=== PATIENT | female | born 1965 | race Caucasian/White ===

== ENCOUNTER 2017-04-02 00:41 | Inpatient (IN) | payer SELFPAY ==
[~2017-04-02] VITALS: Ht 170.2 cm; Wt 94.6 kg
[2017-04-02] VITALS (11 sets, daily range): BP systolic 123–168; BP diastolic 76–97; PULSE 66–80; RESP 12–23; TEMP 96.8–98.6; O2SAT 95–100
[~2017-04-02 00:41] MED LIST: ALPR.5 PO; BENZ1TAB PO; ESCI10TA PO; HYDR50TA94 PO; IBUP800T23 PO; SERO100T PO; TRAZ50TA12 PO
[2017-04-02] MEDS ORDERED: SODIUM CHLOR 0.9% 1000 ML INJ 1,000 ML IV ONE ×2 (00:49→01:30)
--- NOTE | 2017-04-02 00:59 | RADRPT ---
EXAM DATE/TIME: 04/02/2017 00:51 [facility] COMPARISON: No previous studies available for comparison. INDICATIONS : Stroke alert; right weakness and headache. RADIATION DOSE: 49.40 CTDIvol (mGy) This report was called by to Dr. Dick at 12: 58 AM MEDICAL HISTORY : Non-responsive. SURGICAL HISTORY : Non-responsive. ENCOUNTER: Initial ACUITY: 1 day PAIN SCALE: Non-responsive LOCATION: cranial TECHNIQUE: Multiple contiguous axial images were obtained of the head. Using automated exposure control and adj ustment of the mA and/or kV according to patient size, radiation dose was kept as low as reasonably a chievable to obtain optimal diagnostic quality images. DICOM format image data is available electro nically for review and comparison. FINDINGS: CEREBRUM: The ventricles are normal for age. No evidence of midline shift, mass lesion, hemorrhage or acute in farction. No extra-axial fluid collections are seen. POSTERIOR FOSSA: The cerebellum and brainstem are intact. The 4th ventricle is midline. The cerebellopontine angle i s unremarkable. EXTRACRANIAL: The visualized portion of the orbits is intact. SKULL: The calvaria is intact. No evidence of skull fracture. CONCLUSION: Negative exam. No bleed. Aris Lord MD on April 02, 2017 at 0:57 Board Certified Radiologist. This report was verified electronically.
[2017-04-02 01:03] LABS: I-STAT POTASSIUM 3.6 MMOL/L (3.5-4.9); I-STAT SODIUM 143 MMOL/L (138-146)
[2017-04-02 01:06] LABS: AUTOMATED NEUTROPHIL # 3.3 TH/MM3 (1.8-7.7); BASOPHIL % 0.6 % (0.0-2.0); EOSINOPHIL # 0.3 TH/MM3 (0-0.4); EOSINOPHIL % 4.9 % (0.0-4.0); HEMO FLAGS DIFF FINAL; LYMPH % 38.8 % (9.0-44.0); LYMPHOCYTE # 2.7 TH/MM3 (1.0-4.8); MEAN CELL VOLUME 100.6 FL (80.0-100.0); MEAN CORPUSCULAR HEMOGLOBIN 35.8 PG (27.0-34.0); MEAN CORPUSCULAR HGB CONC 35.6 % (32.0-36.0); MONO % 8.3 % (0.0-8.0); NEUT % 47.4 % (16.0-70.0); PLATELET COUNT 200 TH/MM3 (150-450); RED BLOOD COUNT 3.68 MIL/MM3 (4.00-5.30); RED CELL DISTRIBUTION WIDTH 13.6 % (11.6-17.2)
[2017-04-02] MEDS ORDERED: IOHEXOL 350 MG/ML 10 ML VIAL (for RAD DIAG) IV ONE (01:10)
[2017-04-02 01:17] LABS: PROTHROMBIN TIME - PATIENT 11.5 SEC (9.8-11.6)
--- NOTE | 2017-04-02 01:17 | RADRPT ---
EXAM DATE/TIME: 04/02/2017 01:01 [facility] COMPARISON: No previous studies available for comparison. INDICATIONS : Stroke alert; Right sided weakness and headache. IV CONTRAST: 100 cc Omnipaque 350 (iohexol) IV ; Cumulative dose for multiple exams. RADIATION DOSE: 28.26 CTDIvol (mGy) ; Combined studies MEDICAL HISTORY : Non-responsive. SURGICAL HISTORY : Non-responsive. ENCOUNTER: Initial ACUITY: 1 day PAIN SCALE: Non-responsive LOCATION: cranial TECHNIQUE: Volumetric scanning was performed using a multi-row detector CT scanner. The data was post processed with a variety of visualization algorithms including full volume maximum intensity projection, multi -planar sliding thin slab reformation, curved planar reformation, and surface rendering techniques. Using automated exposure control and adjustment of the mA and/or kV according to patient size, radiat ion dose was kept as low as reasonably achievable to obtain optimal diagnostic quality images. DICO M format image data is available electronically for review and comparison. FINDINGS: There is excellent visualization of the major intracranial arteries out to the second-order branch ve ssels. There is no evidence for aneurysm, vessel truncation or stenosis, and no evidence for vascula r malformation. Anatomic variant of the [place]. 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 CONCLUSION: 1. Anatomic variant of the [place] as above. 2. Otherwise, intracranial vessels are all patent without embolus or aneurysmal disease. Aris Lord MD on April 02, 2017 at 1:13 Board Certified Radiologist. This report was verified electronically.
--- NOTE | 2017-04-02 01:20 | RADRPT ---
EXAM DATE/TIME: 04/02/2017 01:01 [facility] COMPARISON: No previous studies available for comparison. INDICATIONS : Stroke alert; Right sided weakness and headache. IV CONTRAST: 100 cc Omnipaque 350 (iohexol) IV ; Cumulative dose for multiple exams. RADIATION DOSE: 28.26 CTDIvol (mGy) ; Combined studies MEDICAL HISTORY : Non-responsive. SURGICAL HISTORY : Non-responsive. ENCOUNTER: Initial ACUITY: 1 day PAIN SCALE: Non-responsive LOCATION: neck Elevated flow velocities and ICA/CCA ratios have been found to correlate with increased degrees of vessel stenosis, calculated as percentage of diameter relative to a normal segment of distal ICA/CCA. TECHNIQUE: Volumetric scanning was performed using a multirow detector CT scanner. The data was post processed with a variety of visualization algorithms including full-volume maximum intensity projection, multip lanar sliding thin-slab reformation, curved-planar reformation, and surface-rendering techniques. Us ing automated exposure control and adjustment of the mA and/or kV according to patient size, radiatio n dose was kept as low as reasonably achievable to obtain optimal diagnostic quality images. DICOM f ormat image data is available electronically for review and comparison. FINDINGS: AORTIC ARCH: There is a three-vessel origin of the great vessels from the aorta. No evidence of ostial narrowing. RIGHT CAROTID: The common carotid artery is intact. The carotid bulb has a normal configuration without ulceration o r narrowing. The internal carotid artery lumen is smooth without stenosis. The external carotid haylee ry is intact. LEFT CAROTID: The common carotid artery is intact. The carotid bulb has a normal configuration without ulceration or narrowing. The internal carotid artery lumen is smooth without stenosis. The external carotid ar jada is intact. VERTEBRALS: The vertebral arteries have a symmetric diameter. No stenotic lesions are seen. MISCELLANEOUS: Bilateral hypodensities in the lobes of the thyroid with the largest on the right measuring 9 mm CONCLUSION: 1. Bilateral thyroid hypodensities are nonspecific but overtly benign. These can be further evaluated on an outpatient basis with ultrasound if clinically warranted. 2. Otherwise, cervical and arch vessels are all patent with no significant atherosclerotic disease. Aris Lord MD on April 02, 2017 at 1:16 Board Certified Radiologist. This report was verified electronically.
--- NOTE | 2017-04-02 01:26 | PD ---
HPI Chief Complaint: Stroke Alert Time Seen by Provider: 00:53 Travel History International Travel<30 days: No Contact w/Intl Traveler<30days: No Traveled to known affect area: No History of Present Illness HPI Patient is a 51-year-old female who presents to emergency room for stroke alert. As per EMS, symptoms began at 12:10 AM, she was riding a car with her friends when she had right-sided paralysis of her right arm and right leg. EMS also reports speech deficits. 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 She reports that she follows with Dr. Hurst and is given Topamax as well as Dilaudid for her hemiplegic migraines. She reports that a few hours prior to these onset of the symptoms, patient did begin to have a migraine, reports that she did not take any of her migraine medications. EMS reported the patient may have had TPA 2 months ago at an outside hospital for similar symptoms. Patient currently is not on anticoagulants. Blood sugar 98. Stroke alert was called overhead, Dr. Mccabe notified. [facility] Past Medical History Arthritis: No Asthma: No Autoimmune Disease: No Blood Disorders: No Anxiety: Yes Depression: Yes Cancer: No Cardiovascular Problems: No Chest Pain: No Congestive Heart Failure: No COPD: No Diabetes: No Diminished Hearing: No Endocrine: No Gastrointestinal Disorders: Yes (GASTROPERESIS) GERD: Yes Genitourinary: No Headaches: Yes (Hx of hemiplegic migraines) Immune Disorder: No Musculoskeletal: Yes Neurologic: Yes Psychiatric: Yes (Hx of treatment for anxiety and depression) Reproductive: No Respiratory: No Migraines: Yes Seizures: No Sickle Cell Disease: No Sleep Apnea: No Thyroid Disease: No Ulcer: No Past Surgical History Abdominal Surgery: Yes (APPENDECTOMY, CHOLESTECTOMY) Appendectomy: Yes Cardiac Surgery: No Section: Yes Cholecystectomy: Yes Endocrine Surgery: No Gynecologic Surgery: Yes () Thoracic Surgery: No Other Surgery: Yes (SINUS SURGERY) Social History Alcohol Use: Yes (RARELY) Tobacco Use: Yes (1/2 PPD) Substance Use: Yes (HYDROMORPHINE) Allergies-Medications (Allergen,Severity, Reaction): Coded Allergies: Sulfa (Sulfonamide Antibiotics) (Unverified Allergy, Severe, LUMPS ON HEAD , 04/02/17) bismuth subsalicylate (Unverified Allergy, Severe, HIVES, 04/02/17) docusate (Unverified Allergy, Severe, HIVES, 04/02/17) Reported Meds & Prescriptions Reported Meds & Active Scripts Active Ibuprofen 800 Mg Tab 800 Mg PO Q8H PRN Escitalopram (Escitalopram Oxalate) 10 Mg Tab 10 Mg PO DAILY Reported Latuda (Lurasidone) 20 Mg Tab 20 Mg PO DAILY Xanax (Alprazolam) 0.5 Mg Tab 0.5 Mg PO BID Trazodone (Trazodone HCl) 50 Mg Tab 50 Mg PO HS Seroquel (Quetiapine Fumarate) 100 Mg Tab 100 Mg PO HS Hydroxyzine HCl 50 Mg Tab 50 Mg PO Q6HR Review of Systems General / Constitutional: No: Fever Eyes: No: Visual changes HENT: No: Headaches Cardiovascular: No: Chest Pain or Discomfort Respiratory: No: Shortness of Breath Gastrointestinal: No: Abdominal Pain Genitourinary: No: Dysuria Musculoskeletal: No: Pain Skin: No Rash Neurologic: Positive: Weakness, Focal Abnormalities, Coordination Problem, Headache, Slurred Speech, Paresthesia Psychiatric: No: Depression Endocrine: No: Polydipsia Hematologic/Lymphatic: No: Easy Bruising Physical Exam Narrative GENERAL: moderate distress SKIN: Focused skin assessment warm/dry. HEAD: Atraumatic. Normocephalic. EYES: Pupils equal and round. No scleral icterus. No injection or drainage. ENT: No nasal bleeding or discharge. Mucous membranes pink and moist. NECK: Trachea midline. No JVD. CARDIOVASCULAR: Regular rate and rhythm. No murmur appreciated. RESPIRATORY: No accessory muscle use. Clear to auscultation. Breath sounds equal bilaterally. GASTROINTESTINAL: Abdomen soft, non-tender, nondistended. Hepatic and splenic margins not palpable. MUSCULOSKELETAL: No obvious deformities. No clubbing. No cyanosis. No edema. NEUROLOGICAL: Awake and alert. Patient with paralysis to right upper and right lower extremity, NIH 15 PSYCHIATRIC:Flat mood and affect Data Data Last Documented VS Vital Signs Date Time Temp Pulse Resp B/P Pulse Ox O2 Delivery O2 Flow Rate FiO2 04/02/17 01:54 76 16 151/76 98 Nasal Cannula 2 04/02/17 00:[address] Brain W/O Iv Contrast(Rout) (04/02/17 00:48) Electrocardiogram (04/02/17 ) I-Stat Creatinine (04/02/17 00:49) I-Stat Profile (04/02/17 00:49) Prothrombin Time / Inr (Pt) (04/02/17 00:49) Act Partial Throm Time (Ptt) (04/02/17 00:49) Complete Blood Count With Diff (04/02/17 00:49) Creatine Kinase (Cpk) (04/02/17 00:49) Troponin I (04/02/17 00:49) Ua Includes Microscopic (04/02/17 00:49) Drug Screen, Random Urine (04/02/17 00:49) Chest, Single Ap (04/02/17 ) Blood Glucose (04/02/17 00:49) Ecg Monitoring (04/02/17 00:49) Iv Access Insert/Monitor (04/02/17 00:49) NPO (04/02/17 00:49) Oximetry (04/02/17 00:49) Sodium Chlor 0.9% 1000 Ml Inj (Ns 1000 M (04/02/17 00:49) Cta Brain W Iv Contrast W 3d (04/02/17 01:02) Cta Neck W Iv Contrast W 3d (04/02/17 01:02) Iohexol 350 Inj (Omnipaque 350 Inj) (04/02/17 01:10) Aspirin Supp (Aspirin Supp) (04/02/17 01:30) Sodium Chlor 0.9% 1000 Ml Inj (Ns 1000 M (04/02/17 01:30) Labs Laboratory Tests Test 04/02/17 00:45 White Blood Count 7.0 TH/MM3 Red Blood Count 3.68 MIL/MM3 Hemoglobin 13.1 GM/DL Bedside Hemoglobin 11.9 G/DL Hematocrit 37.0 % Bedside Hematocrit 35.0 % Mean Corpuscular Volume 100.6 FL Mean Corpuscular Hemoglobin 35.8 PG Mean Corpuscular Hemoglobin 35.6 % Concent Red Cell Distribution Width 13.6 % Platelet Count 200 TH/MM3 Mean Platelet Volume 8.0 FL Neutrophils (%) (Auto) 47.4 % Lymphocytes (%) (Auto) 38.8 % Monocytes (%) (Auto) 8.3 % Eosinophils (%) (Auto) 4.9 % Basophils (%) (Auto) 0.6 % Neutrophils # (Auto) 3.3 TH/MM3 Lymphocytes # (Auto) 2.7 TH/MM3 Monocytes # (Auto) 0.6 TH/MM3 Eosinophils # (Auto) 0.3 TH/MM3 Basophils # (Auto) 0.0 TH/MM3 CBC Comment DIFF FINAL Differential Comment Prothrombin Time 11.5 SEC Prothromb Time International 1.0 RATIO Ratio Activated Partial 27.0 SEC Thromboplast Time Bedside Sodium 143 MMOL/L Bedside Potassium 3.6 MMOL/L Bedside Chloride 105 MMOL/L Bedside Blood Urea Nitrogen 22 MG/DL Bedside Creatinine 0.8 MG/DL Bedside Glucose 104 MG/DL Total Creatine Kinase 95 U/L Troponin I LESS THAN 0.02 NG/ML MDM Medical Screen Exam Complete: Yes Emergency Medical Condition: Yes Differential Diagnosis EKG at 0110: NSR at 71bpm, qt/qtc: 393/416, no acute st or t wave changes Vital Signs Date Time Temp Pulse Resp B/P Pulse Ox O2 Delivery O2 Flow Rate FiO2 04/02/17 01:15 72 13 155/83 98 Nasal Cannula 2 04/02/17 00:41 98.6 69 12 143/97 100 Narrative Course Patient is a 51-year-old female who presents to emergency room for stroke alert. As per EMS, symptoms began at 12:10 AM tonight, she was riding a car with her friends when she had right-sided paralysis of her right arm and right leg. EMS also reports speech deficits. Patient reports that she has had these symptoms in the past, reports that she has hemiplegic migraines which leads to right-sided hemiplegia. She reports that she follows with Dr. Hurst and is given Topamax as well as Dilaudid for her hemiplegic migraines. She reports that a few hours prior to these onset of the symptoms, patient did begin to have a migraine, reports that she did not take any of her migraine medications. EMS reported the patient may have had TPA 2 months ago at an outside hospital for similar symptoms. Patient currently is not on anticoagulants. Blood sugar 98. Stroke alert was called overhead, Dr. Mccabe notified. Case reviewed with Dr. Mccabe, NIH scale 15 Patient is alert and oriented 3, she is capable of making decisions. I did offer patient TPA as there is concerns for CVA as she does have right-sided deficits with a NIH scale of 15. All risks and benefits reviewed with patient in detail. Patient refuses TPA at this time, reports that this is similar to her hemiplegic migraines that she has had in the past. Patient reports that she always has paralysis on her right side whenever this happens and it can take hours or days prior to resolution of symptoms. Patient refused TPA with YING Gerber at bedside Case reviewed with Dr. Mccabe, recommends CTA of head and neck, aspirin, 300cc NS bolus, keep head flat and MRI in the AM CBC & BMP Diagram 04/02/17 00:45 Laboratory Tests Test 04/02/17 00:45 White Blood Count 7.0 TH/MM3 (4.0-11.0) Red Blood Count 3.68 MIL/MM3 (4.00-5.30) Hemoglobin 13.1 GM/DL (11.6-15.3) Bedside Hemoglobin 11.9 G/DL (12.0-17.0) Hematocrit 37.0 % (35.0-46.0) Bedside Hematocrit 35.0 % (38.0-51.0) Mean Corpuscular Volume 100.6 FL (80.0-100.0) Mean Corpuscular Hemoglobin 35.8 PG (27.0-34.0) Mean Corpuscular Hemoglobin 35.6 % Concent (32.0-36.0) Red Cell Distribution Width 13.6 % (11.6-17.2) Platelet Count 200 TH/MM3 (150-450) Mean Platelet Volume 8.0 FL (7.0-11.0) Neutrophils (%) (Auto) 47.4 % (16.0-70.0) Lymphocytes (%) (Auto) 38.8 % (9.0-44.0) Monocytes (%) (Auto) 8.3 % (0.0-8.0) Eosinophils (%) (Auto) 4.9 % (0.0-4.0) Basophils (%) (Auto) 0.6 % (0.0-2.0) Neutrophils # (Auto) 3.3 TH/MM3 (1.8-7.7) Lymphocytes # (Auto) 2.7 TH/MM3 (1.0-4.8) Monocytes # (Auto) 0.6 TH/MM3 (0-0.9) Eosinophils # (Auto) 0.3 TH/MM3 (0-0.4) Basophils # (Auto) 0.0 TH/MM3 (0-0.2) CBC Comment DIFF FINAL Differential Comment Prothrombin Time 11.5 SEC (9.8-11.6) Prothromb Time International 1.0 RATIO Ratio Activated Partial 27.0 SEC Thromboplast Time (24.3-30.1) Bedside Sodium 143 MMOL/L (138-146) Bedside Potassium 3.6 MMOL/L (3.5-4.9) Bedside Chloride 105 MMOL/L (98-109) Bedside Blood Urea Nitrogen 22 MG/DL (8-26) Bedside Creatinine 0.8 MG/DL (0.6-1.0) Bedside Glucose 104 MG/DL (60-95) Total Creatine Kinase 95 U/L (26-192) Troponin I LESS THAN 0.02 NG/ML (0.02-0.05) Patient with continued right-sided hemiplegia, will treat with dexamethasone, Dilaudid, Reglan and continue to monitor. Plan to admit for cva vs hemiplegic migraine - MRI in the AM Case reviewed with Dr. Farr who accepts pt to service Critical Care Narrative Aggregate critical care time was 30 minutes. Time to perform other separately billable procedures was not included in the critical care time. My time did not include minutes spent treating any other patients simultaneously or on activities that did not directly contribute to the patient's treatment. The services I provided to this patient were to treat and/or prevent clinically significant deterioration that could result in: , decompensation, deterioration I provided critical care services requiring my management, as noted below: Chart data review, documentation time, medication orders and management, vital sign assessments/reviewing monitor data, ordering and reviewing lab tests, ordering and interpreting/reviewing x-rays and diagnostic studies, care of the patient and discussion of the patient with the admitting physicians. Stroke Alert NIHSS NIH Stroke Scale Result: 15 NIHSS Time Completed: 12:38 Diagnosis Diagnosis: Primary Impression: CVA (cerebral vascular accident) Additional Impression: Hemiplegic migraine Admitting Physician Requests: Nitza Yu DO Apr 02, 2017 01:25
[2017-04-02 01:27] LABS: CREATINE KINASE 95 U/L (26-192)
--- NOTE | 2017-04-02 01:29 | RADRPT ---
EXAM DATE/TIME: 04/02/2017 01:19 [facility] COMPARISON: No previous studies available for comparison. INDICATIONS : Pt was stroke alert. MEDICAL HISTORY : Non-Responsive SURGICAL HISTORY : Non-Responsive ENCOUNTER: Initial ACUITY: 1 day PAIN SCORE: Non-responsive. LOCATION: Bilateral chest FINDINGS: A single view of the chest demonstrates the lungs to be symmetrically aerated without evidence of mas s, infiltrate or effusion. Heart size is upper limits of normal and well compensated. Osseous struct ures are intact.CONCLUSION: No acute cardiopulmonary process. Aris Lord MD on April 02, 2017 at 1:27 Board Certified Radiologist. This report was verified electronically.
[2017-04-02] MEDS ORDERED: ASPIRIN 300 MG SUPP RECTAL ONE (01:30)
[2017-04-02] MEDS ORDERED: LURA20TA PO ×2 (02:01→15:55)
[2017-04-02] MEDS ORDERED: DEXAMETHASONE SOD PHOS 20 MG/5 ML VIAL IV PUSH ONE (02:30)
[2017-04-02] MEDS ORDERED: ENALAPRILAT 1.25 MG/ML VIAL IV PRN (02:30)
[2017-04-02] MEDS ORDERED: HYDROmorphone HCL PF 1 MG/ML VIAL IV PUSH PRN (02:30)
[2017-04-02] MEDS ORDERED: METOCLOPRAMIDE HCL 10 MG/2 ML VIAL IV PUSH ONE (02:30)
[2017-04-02] MEDS ORDERED: GLUCAGON 1 MG/ML VIAL OTHER PRN (02:30)
[2017-04-02] MEDS ORDERED: HYDROmorphone HCL PF 1 MG/ML VIAL IV PUSH ONE (02:30)
[2017-04-02] MEDS ORDERED: DEXTROSE 50% IN WATER 50 ML VIAL(D50) IV PUSH PRN (02:30)
[2017-04-02] MEDS ORDERED: SODIUM CHLORIDE 0.9% FLUSH 5 ML FLUSH IV FLUSH PRN (02:30)
[2017-04-02 03:03] LABS: BETA HCG QUANT 2 MIU/ML (0-5)
--- NOTE | 2017-04-02 03:36 | HHI.HP ---
[facility] Unknown Admission Diagnosis CVA vs Hemiplegic migraine Diagnoses: (1) Hemiplegic migraine Diagnosis: Principal (2) HTN (hypertension) Diagnosis: Principal (3) Tobacco abuse Diagnosis: Principal Travel History International Travel<30 Days: No Contact w/Intl Traveler <30 Da: No Traveled to Known Affected Are: No History of Present Illness This is a 51-year-old female with a PMH of Anxiety, Depression, Gastroparesis, h /o Polysubstance Abuse and h/o Hemiplegic Migraine who was brought to the ER as a Stroke Alert secondary to acute right-sided flaccid paralysis and facial droop noted by friends. Per report, symptoms occurred at approx 00:10 this evening. +Slurred speech. Similar event approx 2mo ago, s/p TPA at that time w / extensive rehab per report. Following w/ Dr. Hurst as outpatient. On arrival , BP 143/97, HR 69, O2 sat 100% to LE, Afebrile. CBC essentially unremarkable. Chemistry unremarkable. Troponin negative. INR 1.0. Dr. Mccabe consulted as part of stroke alert. CXR w/ no acute findings. CT Head negative. CTA Head /Neck w/ no significant abnormalities. Pt offered TPA, however she refused. ASA and MRI in am per Neurology. Review of Systems Except as stated in HPI: all other systems reviewed are Neg ROS: 14 point review of systems otherwise negative Past Family Social History Past Medical History PMH: Anxiety, Depression, Gastroparesis, h/o Polysubstance Abuse and h/o Hemiplegic Migraine Past Surgical History PAST SURGICAL HISTORY: Appendectomy, Cholecystectomy, , Sinus Surgery. Allergies: Coded Allergies: Sulfa (Sulfonamide Antibiotics) (Unverified Allergy, Severe, LUMPS ON HEAD , 04/02/17) bismuth subsalicylate (Unverified Allergy, Severe, HIVES, 04/02/17) docusate (Unverified Allergy, Severe, HIVES, 04/02/17) Family History PAST FAMILY HISTORY: Reviewed. No h/o DM or CAD Social History PAST SOCIAL HISTORY: Occasional alcohol. Smokes 1/2ppd. H/o Cocaine/Dilaudid. Physical Exam Vital Signs Vital Signs Date Time Temp Pulse Resp B/P Pulse Ox O2 Delivery O2 Flow Rate FiO2 04/02/17 02:43 73 17 138/77 99 Nasal Cannula 2 04/02/17 01:54 76 16 151/76 98 Nasal Cannula 2 04/02/17 01:15 72 13 155/83 98 Nasal Cannula 2 04/02/17 01:00 72 13 159/92 100 Nasal Cannula 2 04/02/17 00:55 80 14 137/89 100 Nasal Cannula 2 04/02/17 00:41 98.6 69 12 143/97 100 Physical Exam PE: GENERAL: Middle-aged white female in no acute distress. Aphasic, but nods/ shakes heads to questions. HEENT: PERRLA, EOMI. No scleral icterus or conjunctival pallor. No lid lag or facial droop. CARDIOVASCULAR: Regular rate and rhythm. No obvious murmurs to auscultation. No chest tenderness to palpation. RESPIRATORY: No obvious rhonchi or wheezing. Clear to auscultation. Breath sounds equal bilaterally. GASTROINTESTINAL: Abdomen soft, non-tender, nondistended. BS normal. MUSCULOSKELETAL: Extremities without clubbing, cyanosis, or edema. No obvious deformities. NEUROLOGICAL: Awake, alert and oriented x4. Right-sided flaccid paralysis. Moving both upper and lower extremities spontaneously. Laboratory Laboratory Tests Test 04/02/17 00:45 White Blood Count 7.0 Red Blood Count 3.68 Hemoglobin 13.1 Bedside Hemoglobin 11.9 Hematocrit 37.0 Bedside Hematocrit 35.0 Mean Corpuscular Volume 100.6 Mean Corpuscular Hemoglobin 35.8 Mean Corpuscular Hemoglobin 35.6 Concent Red Cell Distribution Width 13.6 Platelet Count 200 Mean Platelet Volume 8.0 Neutrophils (%) (Auto) 47.4 Lymphocytes (%) (Auto) 38.8 Monocytes (%) (Auto) 8.3 Eosinophils (%) (Auto) 4.9 Basophils (%) (Auto) 0.6 Neutrophils # (Auto) 3.3 Lymphocytes # (Auto) 2.7 Monocytes # (Auto) 0.6 Eosinophils # (Auto) 0.3 Basophils # (Auto) 0.0 CBC Comment DIFF FINAL Differential Comment Prothrombin Time 11.5 Prothromb Time International 1.0 Ratio Activated Partial 27.0 Thromboplast Time Bedside Sodium 143 Bedside Potassium 3.6 Bedside Chloride 105 Bedside Blood Urea Nitrogen 22 Bedside Creatinine 0.8 Bedside Glucose 104 Total Creatine Kinase 95 Troponin I LESS THAN 0.02 Human Chorionic Gonadotropin, 2 Quant Result Diagram: 04/02/17 0045 Assessment and Plan Problem List: (1) Hemiplegic migraine ICD Code: G43.409 Status: Acute (2) HTN (hypertension) ICD Code: I10 Status: Acute (3) Tobacco abuse ICD Code: Z72.0 Status: Acute Assessment and Plan A/P: 1. Hemiplegic Migraine: acute onset of right-sided flaccid paralysis, aphasia and facial droop at approx 00:10 this evening, arrived as Stroke Alert, CT Head w/ no acute findings, CTA Head/Neck with no significant abnormalities, images reviewed by me. Dr. Mccabe consulted, pt offered TPA however refused. Per report, recent TPA approx 2mo ago for similar symptoms. ASA and MRI Brain in am per Dr. Mccabe. Follows w/ Dr. Hurst as outpatient, will consult. H/o Polysubstance abuse w/ Dilaudid/Cocaine, Urine Drug Screen pending. Analgesics/ antiemetics for headache as needed. May benefit from Verapamil, will await Neuro recommendations. 2. HTN: BP 140-150's, will monitor. 3. Tobacco Abuse: Ativan prn if needed. No NicoDerm to avoid vasoconstriction. 4. DVT Prophylaxis: SCD/Teds. 5. Social work for d/c planning as needed. 6. Case discussed w/ ER physician at length. Physician Certification 2 Midnight Certification Type: Admission for Inpatient Services Order for Inpatient Services The services are ordered in accordance with Medicare regulations or non- Medicare payer requirements, as applicable. In the case of services not specified as inpatient-only, they are appropriately provided as inpatient services in accordance with the 2-midnight benchmark. Estimated LOS (days): 2 days is the estimated time the patient will need to remain in the hospital, assuming treatment plan goals are met and no additional complications. Post-Hospital Plan: Not yet determined Sumi Farr MD Apr 02, 2017 03:36
[2017-04-02] MEDS ORDERED: LORazepam 2 MG/ML VIAL IV PUSH PRN (04:15)
[2017-04-02] MEDS: INSULIN ASPART SUPPLEMENTAL SCALE SQ SCH ×2 (06:13→11:00)
[2017-04-02 07:11] LABS: BETA HCG QUANT 2 MIU/ML (0-5)
[2017-04-02] MEDS: HYDROmorphone HCL PF 1 MG/ML VIAL IV PUSH PRN ×2 (07:58→12:06)
[2017-04-02] MEDS ORDERED: ALPRAZolam 0.5 MG TAB PO PRN (08:15)
[2017-04-02] MEDS ORDERED: ASPIRIN 300 MG SUPP RECTAL SCH (09:00)
[2017-04-02] MEDS ORDERED: SODIUM CHLORIDE 0.9% FLUSH 5 ML FLUSH IV FLUSH SCH (09:00)
[2017-04-02] MEDS ORDERED: ESCITALOPRAM OXALATE 10 MG TAB PO SCH (09:00)
[2017-04-02] MEDS ORDERED: LURASIDONE 40 MG TAB PO SCH (09:00)
[2017-04-02] MEDS ORDERED: GADODIAMIDE PF 287 MG/ML 20 ML VIAL (for RAD MRI) IV ONE (09:30)
[2017-04-02] MEDS ORDERED: ASPIRIN 81 MG CHEW TAB ONE (11:40)
--- NOTE | 2017-04-02 11:52 | RADRPT ---
EXAM DATE/TIME: 04/02/2017 09:11 [place] COMPARISON: No previous studies available for comparison. INDICATIONS : Right sided weakness. CVA vs. hemiplegic migraine. CONTRAST: 20 cc Omniscan (gadodiamide) IV MEDICAL HISTORY : Gastroesophageal reflux disease. Gastroparesis. SURGICAL HISTORY : Appendectomy. Cholecystectomy. ENCOUNTER: Initial ACUITY: 1 day PAIN SCORE: 0/10 LOCATION: cranial TECHNIQUE: Multiplanar, multisequence MRI of the brain was performed both prior to and following the administrat ion of paramagnetic contrast. FINDINGS: CEREBRUM: The ventricles are normal for age. No evidence of midline shift, mass lesion, hemorrhage or acute in farction. No extraaxial fluid collections are seen. The pituitary gland and suprasellar cistern are normal in configuration. WHITE MATTER: A few scattered foci of bright T2 signal abnormalities are seen in the white matter. POSTERIOR FOSSA: The cerebellum and brainstem are intact. The 4th ventricle is midline. The cerebellopontine angle is unremarkable. The cerebellar tonsils are normal in position. DIFFUSION IMAGING: No focal areas of restricted diffusion are seen. No evidence of acute infarction. EXTRACRANIAL: The visualized portions of the orbits and paranasal sinuses are unremarkable. POST-CONTRAST: No abnormal areas of parenchymal or dural enhancement. No evidence of blood-brain barrier breakdown. CONCLUSION: 1. Minimal nonspecific white matter changes. 2. No acute infarction. Jose M Gutiérrez MD on April 02, 2017 at 9:40 Board Certified Radiologist. This report was verified electronically.
[2017-04-02 12:48] LABS: HEMOGLOBIN A1a 1.1 %; HEMOGLOBIN A1b 0.7 %; HEMOGLOBIN F 1.4 %; HEMOGLOBIN LA1C 1.9 %
[2017-04-02 12:49] LABS: HEMOGLOBIN P3 3.4 %
[2017-04-02 14:30] LABS: BACTERIA, URINE RARE /hpf; BLOOD, URINE NEG (NEG); GLUCOSE,URINE NEG (NEG); KETONE, URINE NEG (NEG); MUCUS URINE FEW /lpf (OCC); NITRITE,URINE NEG (NEG); SQUAMOUS EPITHELIAL CELL URINE 2 /hpf (0-5); URINE COLOR YELLOW (YELLW/STRAW)
--- NOTE | 2017-04-02 15:12 | EKG ---
Date Performed: 04/02/2017 Time Performed: 01:10:00 PTAGE: 51 years EKG: Sinus rhythm NORMAL ECG Since PREVIOUS TRACING , no significant change noted PREVIOUS TRACIN02/12/2016 00.06 DOCTOR: Vince Mohan Interpretating Date/Time 04/02/2017 15:10:20
[2017-04-02] MEDS ORDERED: VITACAP7 PO (15:55)
[2017-04-02] MEDS ORDERED: MULTTAB67 PO (15:55)
[2017-04-02] MEDS ORDERED: XANA1TAB2 PO (15:55)
[2017-04-02] MEDS ORDERED: MILK140C PO (15:55)
[2017-04-02] MEDS ORDERED: LAMO25 PO (15:55)
[2017-04-02] MEDS ORDERED: ASPI81CH25 PO (16:19)
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
--- NOTE | 2017-04-02 16:28 | HHI.PR ---
Subjective Remarks Follow up for hemiplegic migraine. The patient reports feeling much better. Headache much improved and right facial droop resolved. Denies any unilateral numbness/weakness. She is ambulating the hallway without difficulty. She wants to go home. Patient informed all imaging negative. She is instructed to start on baby aspirin, patient verbalizes understanding. She has no other medical complaints at this time. Objective Vitals Vital Signs Date Time Temp Pulse Resp B/P (MAP) Pulse Ox O2 Delivery O2 Flow Rate FiO2 04/02/17 14:02 98.2 77 18 123/78 (93) 96 04/02/17 07:51 97 Nasal Cannula 2.00 04/02/17 04:06 97.1 66 22 135/78 (97) 98 04/02/17 03:43 96.8 70 23 168/92 (117) 95 04/02/17 02:43 73 17 138/77 (97) 99 Nasal Cannula 2 04/02/17 01:54 76 16 151/76 (101) 98 Nasal Cannula 2 04/02/17 01:15 72 13 155/83 (107) 98 Nasal Cannula 2 04/02/17 01:00 72 13 159/92 (114) 100 Nasal Cannula 2 04/02/17 00:55 80 14 137/89 (105) 100 Nasal Cannula 2 04/02/17 00:41 98.6 69 12 143/97 (112) 100 Result Diagram: 04/02/1744 Imaging Last Impressions Neck CTA 04/02/17101 Signed Impressions: Service Date/Time: Sunday, April 02, 2017 01:01 - CONCLUSION: 1. Bilateral thyroid hypodensities are nonspecific but overtly benign. These can be further evaluated on an outpatient basis with ultrasound if clinically warranted. 2. Otherwise, cervical and arch vessels are all patent with no significant atherosclerotic disease. Aris Lord MD Head CTA 04/02/17101 Signed Impressions: Service Date/Time: Sunday, April 02, 2017 01:01 - CONCLUSION: 1. Anatomic variant of the pala of [place] as above. 2. Otherwise, intracranial vessels are all patent without embolus or aneurysmal disease. Aris Lord MD Head CT 04/02/17 0048 Signed Impressions: Service Date/Time: Sunday, April 02, 2017 00:51 - CONCLUSION: Negative exam. No bleed. Aris Lord MD Chest X-Ray 04/02/17 0000 Signed Impressions: Service Date/Time: Sunday, April 02, 2017 01:19 - CONCLUSION: No acute cardiopulmonary process. Aris Lord MD Objective Remarks GENERAL: Well-nourished, well-developed middle aged female patient in [facility]. Ambulatory. SKIN: Warm and dry. No rash. HEENT: Normocephalic. Atraumatic. Pupils equal and round. Mucous membranes pink and moist. CARDIOVASCULAR: Regular rate and rhythm. S1, S2 noted. No murmur appreciated. RESPIRATORY: No accessory muscle use. Clear to auscultation. Breath sounds equal bilaterally. GASTROINTESTINAL: Abdomen soft, non-tender, nondistended. Normoactive bowel sounds x4. MUSCULOSKELETAL: No obvious deformities. Extremities without clubbing, cyanosis , or edema. NEUROLOGICAL: Awake and alert. No obvious cranial nerve deficits. Motor grossly within normal limits. 5/5 muscle strength in bilateral upper and lower extremities. Normal speech. PSYCHIATRIC: Appropriate mood and affect; insight and judgment normal. Medications and IVs Current Medications Medications (Trade) Dose Ordered Sig/Chay Route Start Time Stop Time Status Last Admin (NS Flush) 2 ml BID IV FLUSH 04/02/17 09:00 (NS Flush) 2 ml UNSCH PRN IV FLUSH 04/02/17 02:30 (Vasotec Inj) 1.25 mg Q4H PRN IV 04/02/17 02:30 (NovoLOG SUPPLEMENTAL SCALE) 1 ACHS SQ 04/02/17 07:00 (D50w (Vial) Inj) 50 ml UNSCH PRN IV PUSH 04/02/17 02:30 (Glucagon Inj) 1 mg UNSCH PRN OTHER 04/02/17 02:30 (Dilaudid Pf Inj) 0.5 mg Q4H PRN IV PUSH 04/02/17 02:30 (Dilaudid Pf Inj) 1 mg Q4H PRN IV PUSH 04/02/17 02:30 04/02/17 07:58 (Ativan Inj) 1 mg Q2H PRN IV PUSH 04/02/17 04:15 04/02/17 04:31 (Xanax) 0.5 mg BID PRN PO 04/02/17 08:15 (Lexapro) 10 mg DAILY PO 04/02/17 09:00 (Latuda) 20 mg DAILY PO 04/02/17 09:00 (SEROquel) 100 mg HS PO 04/02/17 21:00 (Desyrel) 50 mg HS PO 04/02/17 21:00 (Aspirin Chew) 81 mg DAILY PO 04/03/17 09:00 A/P Problem List: (1) Hemiplegic migraine ICD Code: G43.409 - Hemiplegic migraine, not intractable, without status migrainosus Status: Acute (2) HTN (hypertension) ICD Code: I10 - Essential (primary) hypertension Status: Acute (3) Tobacco abuse ICD Code: Z72.0 - Tobacco use Status: Acute Assessment and Plan 51-year-old female with a PMH of Anxiety, Depression, Gastroparesis, h/o Polysubstance Abuse and h/o Hemiplegic Migraine who was brought to the ER as a Stroke Alert secondary to acute right-sided flaccid paralysis and facial droop noted by friends. Hemiplegic Migraine: acute onset of right-sided flaccid paralysis, aphasia and facial droop at approx 00:10 this evening, arrived as Stroke Alert. CT Head w/ no acute findings, CTA Head/Neck with no significant abnormalities, images reviewed by me. Dr. Mccabe contacted upon arrival, pt offered TPA however refused. Per report, recent TPA approx 2mo ago for similar symptoms. Neuro consulted. Brain MRI images reviewed, no acute findings. Started on baby aspirin. Given analgesics/antiemetics for headache as needed. Patient symptoms resolved with resolution of headache. Patient ambulating hallways; no focal deficit on exam. Cleared for d/c by neuro on aspirin 81mg daily, and outpatient follow up with her neurologist Dr. Hurst. Polysubstance abuse: likely contributing to above symptoms. UDS positive for opiates, benzos, cocaine, and cannabinoids. Counseled on cessation. HTN: BP 140-150's, will monitor. BP better controlled today, currently 123/ 78. Tobacco Abuse: Ativan prn if needed. No NicoDerm to avoid vasoconstriction. DVT Prophylaxis: SCD/Teds. Discharge Planning Discharge patient to home Condition on discharge: Improved Heart Healthy Diet as tolerated Ad Cony activity Rx written: aspirin 81mg daily Follow-up with primary care physician and neurologist Dr. Hurst within 1 week Belinda Peralta PA-C Apr 02, 2017 4:28 pm
[2017-04-02] MEDS ORDERED: QUEtiapine FUMARATE 100 MG TAB PO SCH (21:00)
[2017-04-02] MEDS ORDERED: traZODone HCL 50 MG TAB PO SCH (21:00)
[2017-04-03] MEDS ORDERED: ASPIRIN 81 MG CHEW TAB PO SCH (09:00)
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
[2017-04-06 03:53] LABS: THROMBIN TIME FOR LA ND sec (13-19)
== END 2017-04-02 17:13 | disposition home or self-care (01) | DRG 103 ==
LOC: NEPC 00:41 → NEDA 02:17 → NEPGCP 03:22
PROVIDERS: ADMIT Hospitalist; ATTEND Hospitalist
DX: G43.409 Hemiplegic migraine, not intractable, without status migrainosus (principal); G81.91 Hemiplegia, unspecified affecting right dominant side; I10 Essential (primary) hypertension; R47.01 Aphasia; K31.84 Gastroparesis; F41.8 Other specified anxiety disorders; R29.810 Facial weakness; F17.200 Nicotine dependence, unspecified, uncomplicated; E78.00 Pure hypercholesterolemia, unspecified; B19.20 Unspecified viral hepatitis C without hepatic coma; K21.9 Gastro-esophageal reflux disease without esophagitis; R29.715 NIHSS score 15
CPT/HCPCS: 70450; 70496; 70498; 70553; 71010; 80307; 81001; 81240; 81241; 82435; 82550; 82565; 82746; 82947; 82948; 83036; 84132; 84295; 84484; 84520; 84702; 85025; 85240; 85300; 85303; 85306; 85610; 85613; 85730; 86147; 86592; 93005; A9579; J1100; J1170; J2060; J2765; J7030; Q9967